=== PATIENT | male | born 1950 | race Caucasian/White ===

== ENCOUNTER → 2020-11-24 | Outpatient (CLI) | payer OTHER ==
[~2020-11-24] MED LIST: ASPI81CH PO; DOXA4 PO; NIFE60ER PO; OLME20 PO
== END | disposition home or self-care (01) ==
LOC: LAB 14:45 → LAB SHORT 14:45
DX: R30.0 Dysuria (principal)
CPT/HCPCS: 87086

== ENCOUNTER 2021-05-22 10:35 | Day surgery (SDC) | payer OTHER ==
[~2021-05-22] VITALS: Ht 175.3 cm; Wt 104.1 kg
[2021-05-22] MEDS ORDERED: DOXA4 PO (11:13)
[2021-05-22] MEDS ORDERED: NIFE60ER PO (11:15)
[2021-05-22] MEDS ORDERED: ASPI81CH PO (11:15)
[2021-05-22] MEDS ORDERED: OLME20 PO (11:15)
--- NOTE | 2021-05-22 12:36 | NUR ---
05/22/21 1236 Ramu Elkins TIME OUT PERFORMED FOR SHOULDER BLOCK AT 1230.
== END 2021-05-22 16:15 | disposition home or self-care (01) ==
LOC: ORSCSDS 10:35
PROVIDERS: Orthopaedic Surgery
PROC: 0LQ14ZZ Repair Right Shoulder Tendon, Percutaneous Endoscopic Approach (ICD-10-PCS; principal; 2021-05-22 12:00)
PROC: 0RNJ4ZZ Release Right Shoulder Joint, Percutaneous Endoscopic Approach (ICD-10-PCS; principal; 2021-05-22 12:00)
DX: M75.121 Complete rotator cuff tear or rupture of right shoulder, not specified as traumatic (principal); M75.21 Bicipital tendinitis, right shoulder; M75.41 Impingement syndrome of right shoulder; I10 Essential (primary) hypertension; E66.9 Obesity, unspecified; Z68.33 Body mass index [BMI] 33.0-33.9, adult; Z79.899 Other long term (current) drug therapy
CPT/HCPCS: C1713; J0171; J0690; J1100; J2001; J2250; J2370; J2405; J2704; J3010; J7120

== ENCOUNTER 2022-03-03 11:54 | Day surgery (SDC) | payer OTHER ==
[~2022-03-03] VITALS: Ht 175.3 cm; Wt 104.4 kg
[2022-03-03] MEDS ORDERED: OMEP20ER PO (12:30)
--- NOTE | 2022-03-03 12:35 | NUR ---
03/03/22 1235 Miranda Nicholson CALL LIGHT WITHIN REACH
== END 2022-03-03 13:50 | disposition home or self-care (01) ==
LOC: ORSCSDS 11:54
PROVIDERS: Surgery
PROC: 0DBM8ZX Excision of Descending Colon, Via Natural or Artificial Opening Endoscopic, Diagnostic (ICD-10-PCS; principal; 2022-03-03 13:00)
DX: Z12.11 Encounter for screening for malignant neoplasm of colon (principal); D12.4 Benign neoplasm of descending colon; I10 Essential (primary) hypertension; K57.30 Diverticulosis of large intestine without perforation or abscess without bleeding; E66.9 Obesity, unspecified; Z68.34 Body mass index [BMI] 34.0-34.9, adult; Z79.82 Long term (current) use of aspirin; Z79.899 Other long term (current) drug therapy
CPT/HCPCS: 88305; J2704; J7120

== ENCOUNTER → 2022-11-16 | Outpatient (CLI) | payer OTHER ==
[~2022-11-16] MED LIST changes: +OMEP20ER PO
== END ==
LOC: LAB 07:34 → LAB SHORT 07:34
DX: D10.39 Benign neoplasm of other parts of mouth (principal)
CPT/HCPCS: 88305

== ENCOUNTER 2023-05-11 14:51 | Emergency (ER) | payer OTHER ==
[~2023-05-11] VITALS: Ht 175.3 cm; Wt 102.1 kg
[2023-05-11 15:44] LABS: Source, Urine Clean Catch
[2023-05-11 16:10] LABS: BASOPHILS ABSOLUTE AUTO 0.01 K/mm3 (0.00-0.23); BASOPHILS PERCENT AUTO 0 % (0-2); EOSINOPHILS ABSOLUTE AUTO 0.02 K/mm3 (0.00-0.68); EOSINOPHILS PERCENT AUTO 0 % (0-6); Hematocrit 41.8 % (37.0-53.0); Hemoglobin 14.6 g/dL (13.5-17.5); IMMATURE GRAN ABSOLUTE AUTO 0.03 K/mm3 (0.00-0.10); IMMATURE GRAN PERCENT AUTO 0 % (0-1); LYMPHOCYTES ABSOLUTE AUTO 0.98 K/mm3 (0.84-5.20); LYMPHOCYTES PERCENT AUTO 12 % (21-46); MONOCYTES ABSOLUTE AUTO 0.58 K/mm3 (0.16-1.47); MONOCYTES PERCENT AUTO 7 % (4-13); Mean Corpuscular HGB 29.9 pg (26.0-34.0); Mean Corpuscular HGB Conc 34.9 g/dL (31.5-36.5); Mean Corpuscular Volume 86 fL (80-100); Mean Platelet Volume 10.6 fL (9.1-12.4); NEUTROPHILS ABSOLUTE AUTO 6.72 K/mm3 (1.96-9.15); NEUTROPHILS PERCENT AUTO 81 % (41-73); Platelet Count 147 K/mm3 (150-400); RDW Coefficient Variation 13.2 % (11.7-14.2); RDW Standard Deviation 41.3 fL (35.1-46.3); Red Blood Cell Count 4.88 M/mm3 (4.30-5.90); White Blood Cell Count 8.34 K/mm3 (4.00-11.30)
[2023-05-11 16:12] LABS: Albumin, Blood 3.8 g/dL (3.4-5.0); Albumin/Globulin Ratio 1.2 (0.8-1.8); Bilirubin, Total 0.4 mg/dL (0.1-1.0); Bun/Creatinine Ratio 17.8 (12.0-20.0); Creatinine, Blood 1.29 mg/dL (0.60-1.20); Globulin, Blood 3.1 g/dL (2.2-4.0); Potassium, Blood 3.8 mmol/L (3.5-5.5); Total Protein, Blood 6.9 g/dL (6.4-8.2)
[2023-05-11 16:17] LABS: Appearance, Urine Clear (Clear); Bilirubin, Urine Neg (Neg); Blood, Urine Neg (Neg); Glucose Qualitative, Urine Neg (Neg); Ketones, Urine Neg (Neg); Leukocyte Esterase, Urine Neg (Neg); Nitrite, Urine Neg (Neg); Protein, Urine Neg (Neg); Specific Gravity, Urine 1.015 (1.003-1.022); Urobilinogen, Urine NORM (Normal)
[2023-05-11 16:40] LABS: Color, Urine Pale Yellow (P-Yellow)
[2023-05-11] MEDS ORDERED: ESCI10 PO (16:45)
[2023-05-11] MEDS ORDERED: B-12500 MC2 PO (16:46)
[2023-05-11] MEDS ORDERED: ERGO400 (16:46)
[2023-05-11] MEDS ORDERED: ZINC15 (16:47)
[2023-05-11] MEDS ORDERED: Saw Palmetto160 MG (16:47)
[2023-05-11] MEDS ORDERED: DOCCAL240 (16:48)
[2023-05-11] MEDS ORDERED: METAMUCIL POWD798 GM (16:48)
[2023-05-11 19:02] VITALS: BP 195/90
[2023-05-17] MEDS ORDERED: Pyridium100 MG PO (11:07)
[2023-05-17] MEDS ORDERED: HYDHCL25 PO (11:07)
== END 2023-05-11 20:03 | disposition home or self-care (01) ==
LOC: ER 14:51
PROVIDERS: Physician Assistant
DX: I10 Essential (primary) hypertension (principal); Z88.8 Allergy status to other drugs, medicaments and biological substances
CPT/HCPCS: 80053; 81003; 85025; 93005; 93010; 99283-25